=== PATIENT | female | born 1955 | race Hispanic/Latino ===

== ENCOUNTER 2018-08-09 16:09 | Outpatient (CLI) | payer OTHER | END 2018-08-09 16:10 | disposition home or self-care (01) | LOC: RAD 16:09 ==

== ENCOUNTER 2018-08-28 09:47 | Outpatient (CLI) | payer OTHER | END 2018-08-28 09:48 | disposition home or self-care (01) | LOC: RAD 09:47 ==

== ENCOUNTER 2018-10-19 08:26 | Outpatient (CLI) | payer OTHER | END 2018-10-19 08:27 | disposition home or self-care (01) | LOC: LAB 08:26 ==